=== PATIENT | female | born 1975 | race Caucasian/White ===

== ENCOUNTER 2018-01-07 11:21 | Emergency (ER) | payer BC, OTHER ==
[2018-01-07] MEDS: METHYLPREDNISOLONE 125 MG INJ IM (15:26)
[2018-01-07] MEDS: KETOROLAC 30 MG INJ IM (15:26)
[2018-01-07] MEDS: IPRATROPIUM (NEB) 0.5 MG/2.5 ML AMP NEB (15:41)
[2018-01-07] MEDS: ALBUTEROL 0.083% (NEB) 2.5 MG/3 ML AMP NEB (15:41)
== END 2018-01-07 16:33 | disposition home or self-care (01) ==
LOC: FTE 11:21
DX: J06.9 Acute upper respiratory infection, unspecified (principal); F17.210 Nicotine dependence, cigarettes, uncomplicated; J45.909 Unspecified asthma, uncomplicated
CPT/HCPCS: 71045; 94664; 96372; 99284-25